=== PATIENT | female | born 1990 | race Caucasian/White ===

== ENCOUNTER 2018-07-14 14:22 | Outpatient (CLI) | payer OTHER | END 2018-07-14 14:32 | disposition home or self-care (01) | LOC: SONOGRAMA 14:22 | DX: Z34.82 Encounter for supervision of other normal pregnancy, second trimester (principal); Z33.1 Pregnant state, incidental ==

== ENCOUNTER 2018-11-29 10:33 | Inpatient (IN) | payer OTHER ==
[~2018-11-29] VITALS: Ht 157.5 cm; Wt 2.7 kg
[2018-12-02] MEDS ORDERED: PRENATAL TABLE1 EAC1 PO (08:20)
[2018-12-05] MEDS ORDERED: SURFAK240 M1 PO (16:01)
[2018-12-05] MEDS ORDERED: PERCOCET 5-3251 EACH PO (16:01)
== END 2018-12-05 16:45 | disposition home or self-care (01) | DRG 788 ==
LOC: OB/GYN 10:33 → LDR 12-02 06:43 → OB/GYN 12-02 06:43 → LDR 12-02 09:46 → OB/GYN 12-02 22:13
PROVIDERS: ADMIT Obstetrics & Gynecology
PROC: 3E0P7VZ Introduction of Hormone into Female Reproductive, Via Natural or Artificial Opening (ICD-10-PCS; 2018-12-02)
PROC: 3E033VJ Introduction of Other Hormone into Peripheral Vein, Percutaneous Approach (ICD-10-PCS; 2018-12-02)
PROC: 4A1HXCZ Monitoring of Products of Conception, Cardiac Rate, External Approach (ICD-10-PCS; 2018-12-02)
PROC: 10D00Z1 Extraction of Products of Conception, Low, Open Approach (ICD-10-PCS; principal; 2018-12-02 18:00)
DX: O61.0 Failed medical induction of labor (principal); Z3A.40 40 weeks gestation of pregnancy; Z37.0 Single live birth

== ENCOUNTER 2021-01-09 07:20 | Emergency (ER) | payer OTHER ==
[~2021-01-09] VITALS: Ht 157.5 cm; Wt 59.4 kg
[~2021-01-09 07:20] MED LIST: PERCOCET 5-3251 EACH PO; PRENATAL TABLE1 EAC1 PO; SURFAK240 M1 PO
[2021-01-09] MEDS ORDERED: ONDANSETRON ODT4 MG SL (11:52)
[2021-01-09] MEDS ORDERED: INTESTINEX680 M1 PO (11:52)
[2021-01-09] MEDS ORDERED: PEPCID AC20 MG PO (11:52)
[2021-01-09] MEDS ORDERED: LEVSIN/SL0.125 MG PO (11:52)
== END 2021-01-09 12:15 | disposition home or self-care (01) ==
LOC: ER 07:20
DX: K52.9 Noninfective gastroenteritis and colitis, unspecified (principal); E86.0 Dehydration; Z03.818 Encounter for observation for suspected exposure to other biological agents ruled out

== ENCOUNTER 2022-01-23 12:33 | Outpatient (CLI) | payer OTHER ==
[~2022-01-23 12:33] MED LIST changes: +INTESTINEX680 M1 PO; +LEVSIN/SL0.125 MG PO; +ONDANSETRON ODT4 MG SL; +PEPCID AC20 MG PO
== END 2022-01-23 13:58 | disposition home or self-care (01) ==
LOC: PRENATAL 12:33
PROVIDERS: ATTEND Obstetrics & Gynecology Maternal & Fetal Medicine
DX: O36.80X0 Pregnancy with inconclusive fetal viability, not applicable or unspecified (principal); O34.219 Maternal care for unspecified type scar from previous cesarean delivery

== ENCOUNTER 2022-03-28 11:05 | Outpatient (CLI) | payer OTHER | END 2022-03-28 12:20 | disposition home or self-care (01) | LOC: PRENATAL 11:05 | PROVIDERS: ATTEND Obstetrics & Gynecology Maternal & Fetal Medicine | DX: O35.0XX0 Maternal care for (suspected) central nervous system malformation in fetus, not applicable or unspecified (principal); O35.3XX0 Maternal care for (suspected) damage to fetus from viral disease in mother, not applicable or unspecified; O34.219 Maternal care for unspecified type scar from previous cesarean delivery; Z3A.20 20 weeks gestation of pregnancy ==

== ENCOUNTER 2022-07-07 11:25 | Outpatient (CLI) | payer OTHER ==
[2022-07-07] MEDS ORDERED: ZINC50 M1 PO (12:18)
[2022-07-07] MEDS ORDERED: PRENATAL CAPLE1 EAC1 PO (12:18)
[2022-07-07] MEDS ORDERED: FOLIC ACID20 MG PO (12:18)
[2022-07-07] MEDS ORDERED: VITAMIN B-650 M1 PO (12:19)
== END 2022-07-07 14:39 | disposition home or self-care (01) ==
LOC: OBS/DEL 11:25
PROVIDERS: ATTEND Obstetrics & Gynecology
DX: O26.893 Other specified pregnancy related conditions, third trimester (principal); Z3A.31 31 weeks gestation of pregnancy; R10.2 Pelvic and perineal pain

== ENCOUNTER 2022-07-31 09:15 | Inpatient (IN) | payer OTHER ==
[~2022-07-31] VITALS: Ht 154.9 cm; Wt 69.4 kg
[~2022-07-31 09:15] MED LIST changes: +FOLIC ACID20 MG PO; +PRENATAL CAPLE1 EAC1 PO; +VITAMIN B-650 M1 PO; +ZINC50 M1 PO
[2022-07-31] MEDS ORDERED: PRENATABS FA T1 EACH PO (11:00)
[2022-08-06] MEDS ORDERED: SIMETHICONE125 M1 PO (06:43)
[2022-08-06] MEDS ORDERED: IBUPROFEN800 MG PO (06:43)
== END 2022-08-06 13:20 | disposition home or self-care (01) | DRG 788 ==
LOC: O/R 08-04 06:00 → OB/GYN 08-04 06:00 → LDR 08-04 08:30 → OB/GYN 08-04 10:49
PROVIDERS: ADMIT Obstetrics & Gynecology; ATTEND Obstetrics & Gynecology
PROC: 4A1HXCZ Monitoring of Products of Conception, Cardiac Rate, External Approach (ICD-10-PCS; 2022-08-04)
PROC: 10D00Z1 Extraction of Products of Conception, Low, Open Approach (ICD-10-PCS; principal; 2022-08-04 08:30)
DX: O34.211 Maternal care for low transverse scar from previous cesarean delivery (principal); Z3A.39 39 weeks gestation of pregnancy; Z37.0 Single live birth; Z20.822 Contact with and (suspected) exposure to COVID-19